=== PATIENT | female | born 2000 | race Caucasian/White ===

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

== ENCOUNTER 2023-04-28 07:26 | Emergency (ER) | payer OTHER ==
[~2023-04-28] VITALS: Ht 162.6 cm; Wt 103.0 kg
[2023-04-28 07:32] VITALS: BP 127/72; PULSE 99; RESP 16; TEMP 98.1; O2SAT 99
[2023-04-28] MEDS: LIDOCAINE 2% 1000 MG/50 ML VIAL INJ ONE (07:59)
[2023-04-28 09:43] VITALS: BP 127/72; PULSE 99; RESP 16; TEMP 98.1; O2SAT 99
== END 2023-04-28 09:45 | disposition home or self-care (01) ==
LOC: MED 07:26
DX: L05.01 Pilonidal cyst with abscess (principal)
CPT/HCPCS: 10080; 81025; 99284; J2001

== ENCOUNTER 2023-04-30 07:35 | Emergency (ER) | payer OTHER ==
[~2023-04-30] VITALS: Ht 162.6 cm; Wt 103.0 kg
[2023-04-30 07:43] VITALS: BP 113/80; PULSE 92; RESP 18; TEMP 98.3; O2SAT 97
[2023-04-30 08:16] VITALS: BP 113/80; PULSE 92; RESP 18; TEMP 98.3; O2SAT 97
== END 2023-04-30 08:17 | disposition home or self-care (01) ==
LOC: MED 07:35
DX: L05.91 Pilonidal cyst without abscess (principal); Z48.01 Encounter for change or removal of surgical wound dressing; M54.50 Low back pain, unspecified
CPT/HCPCS: 99281